=== PATIENT | male | born 1955 ===

== ENCOUNTER 2017-11-09 05:17 | Inpatient (IN) | payer OTHER ==
[~2017-11-09] VITALS: Ht 165.1 cm; Wt 80.7 kg
[2017-11-09] VITALS (13 sets, daily range): BP systolic 125–177; BP diastolic 65–86
[2017-11-09] MEDS ORDERED: AMLODIPINE BESY10 MG ORAL (06:23)
[2017-11-09] MEDS ORDERED: Thrombin 5000 units TOPIC ONE (06:24)
[2017-11-09] MEDS ORDERED: Surgicel 4in x 8in TOPIC ONE (06:24)
[2017-11-09] MEDS ORDERED: Bacitracin 50000 Units Vial ONE (06:25)
[2017-11-09] MEDS ORDERED: Bupivacaine 0.5% Inj 30 ml vial INJ ONE (06:25)
[2017-11-09] MEDS ORDERED: Vancomycin 1gm inj IVPB ONE (06:25)
[2017-11-09] MEDS ORDERED: LR 1000ml 1,000 ML IVLG SCH (06:29)
--- NOTE | 2017-11-09 06:29 | Anethesia Preoperative Eval ---
Anesthesia Pre-op PMH/ROS General Date of Evaluation: Nov 09, 2017 Time of Evaluation: 07:06 Anesthesiologist: Lynda ASA Score: ASA 3 Mallampati Score Class I : Soft palate, uvula, fauces, pillars visible Class II: Soft palate, uvula, fauces visible Class III: Soft palate, base of uvula visible Class IV: Only hard plate visible Mallampati Classification: Class II Surgeon: Mckenna Diagnosis: Neck Pain Surgical Procedure: ACDF C5-6, C6-7, ADR C4-5 Anesthesia History: none Family History: no anesthesia problems Allergies: Coded Allergies: No Known Allergies (Unverified , 11/08/17) Medications: see eMAR Past Medical History Cardiovascular: Reports: HTN Other: obesity - BMI 31 Anesthesia Pre-op Phys. Exam Physician Exam Last Vital Signs Date Time Temp Pulse Resp B/P (MAP) Pulse Ox O2 Delivery O2 Flow Rate FiO2 11/09/17 06:23 97.9 69 20 177/80 99 Room Air Constitutional: NAD Neurologic: CN 2-12 intact Cardiovascular: RRR Respiratory: CTA Gastrointestinal: S/NT/ND Airway Exam Mallampati Score: Class II MO: limited ROM: limited Teeth: intact Anesthesia Pre-op A/P Risk Assessment & Plan Assessment: ASA 3 Plan: GA, BIS, GlideScope Status Change Before Surgery: No Pre-Antibiotics Dru Grams Ancef IV Given Within 1 Hr of Incision: Yes Time Given: 07:31 Bebo Howell MD Nov 09, 2017 06:29
[2017-11-09] MEDS ORDERED: Ketorolac 30mg Inj IV PRN (06:30)
[2017-11-09] MEDS ORDERED: fentaNYL 100 mcg/2 mL IV PRN (06:30)
[2017-11-09] MEDS ORDERED: Norco 7.5mg/325mg tab ORAL PRN ×3 (06:30→07:30)
[2017-11-09] MEDS ORDERED: DiphenhydrAMINE 50mg/ml Inj IVP PRN (06:30)
[2017-11-09] MEDS ORDERED: Ketorolac 60mg Inj IV PRN (06:30)
[2017-11-09] MEDS ORDERED: LORazepam Inj 2mg/ml 1ml IV PRN (06:30)
[2017-11-09] MEDS ORDERED: Norco 5mg/325mg tab ORAL PRN ×2 (06:30→07:30)
[2017-11-09] MEDS ORDERED: Hydromorphone 0.5mg/0.5ml inj IVP PRN (06:30)
[2017-11-09] MEDS ORDERED: Acetaminophen (Non formulary) 100 ML IV ONE (06:30)
[2017-11-09] MEDS ORDERED: Midazolam 2mg/2ml Inj IVP PRN (06:30)
[2017-11-09] MEDS ORDERED: oxyCODONE HCL/Acetaminophen 5/325mg ORAL PRN (06:30)
[2017-11-09] MEDS ORDERED: Metoclopramide 10mg/2ml Inj IVP PRN ×2 (06:30→07:30)
[2017-11-09] MEDS ORDERED: Atropine Inj 1mg/10ml Syr IV PRN (06:30)
[2017-11-09] MEDS ORDERED: Lidocaine 1% MPF 10mg/ml 5ml ONE (07:00)
[2017-11-09] MEDS ORDERED: Glycopyrrolate 0.2mg/ml 1ml Vial ONE (07:00)
[2017-11-09] MEDS ORDERED: Lidocaine 1% Plain 30 ml INJ ONE (07:00)
[2017-11-09] MEDS ORDERED: Zemuron 50mg/5ml Inj IV ONE (07:00)
[2017-11-09] MEDS ORDERED: ceFAZolin sod 2 GM in D5W 110 ML IVPB ONE (07:00)
[2017-11-09] MEDS ORDERED: Propofol 1,000mg/ 100ml btl IV ONE (07:00)
[2017-11-09] MEDS ORDERED: Sterile Water Irrig 1000ml IRRIG ONE (07:00)
[2017-11-09] MEDS ORDERED: NS Irrig 1000ml ONE (07:00)
[2017-11-09] MEDS ORDERED: Neostigmine 1mg/ml 10ml Inj ONE (07:00)
[2017-11-09] MEDS ORDERED: fentaNYL 100 mcg/2 mL IV ONE (07:00)
--- NOTE | 2017-11-09 07:21 | Pre-Procedure Note/Attestation ---
Pre-Procedure Note/Attestation Complete Prior to Procedure Planned Procedure: not applicable Procedure Narrative: C56 Anterior cervical discectomy and fusion , C45 and C67 Anterior cervical discectomy and fusion vs artificial disc replacement Indications for Procedure Pre-Operative Diagnosis: Herniation C45,56,67 Attestation I attest that I discussed the nature of the procedure; its benefits; risks and complications; and alternatives (and the risks and benefits of such alternatives ), prior to the procedure, with the patient (or the patient's legal retention representative). I attest that, if there was a reasonable possibility of needing a blood transfusion, the patient (or the patient's legal retention representative) was given the [place] [employer] standardized written summary, pursuant to the Deepak Whetstone Blood Safety Act ([place] Health and Safety Code # 1645, as amended). I attest that I re-evaluated the patient just prior to the surgery and that there has been no change in the patient's H&P, except as documented below: CARLOTTA CAN Nov 09, 2017 07:20
--- NOTE | 2017-11-09 07:23 | Brief Operative Note ---
Immediate Post Operative Note Operative Note Chief Complaint: neck pain and radiculopathy Pre-op Diagnosis: Herniation C45,56,67 Procedure: C56 Anterior cervical discectomy and fusion , C67 Anterior cervical discectomy and fusion and C45 artificial disc replacement Post-op Diagnosis: same as pre-op Findings: consistent w/pre-op dx studies Surgeon: Mckenna Line Builder: Mehdi Anesthesia: general Specimen: none Complications: none Condition: stable Estimated Blood Loss: minimal Implant(s) used?: Yes - prodisc c sz 5, nuvasive peek interlock sz 6x2 , screws 13x6 CARLOTTA CAN Nov 09, 2017 07:23
[2017-11-09] MEDS ORDERED: Naloxone 0.4mg/ml Inj IVP PRN (07:30)
[2017-11-09] MEDS ORDERED: Milk of Magnesia 30ml Ud ORAL PRN (07:30)
[2017-11-09] MEDS ORDERED: HYDROmorphone 1mg/ml Carpuject SUBQ PRN (07:30)
[2017-11-09] MEDS ORDERED: HYDROmorphone 1mg/ml Carpuject IVP PRN (07:30)
[2017-11-09] MEDS ORDERED: Chloraseptic Spray 20mL Bottle ORAL PRN (07:30)
--- NOTE | 2017-11-09 08:18 | Immediate Post-Op Evaluation ---
Immediate Post-Op Evalulation Immediate Post-Op Evalulation Procedure: ACDF C5-6, C6-7, ADR C4-5 Date of Evaluation: Nov 09, 2017 Time of Evaluation: 10:15 IV Fluids: 1500 LR Blood Products: 0 Estimated Blood Loss: 25 Urinary Output: 700 LR Blood Pressure Systolic: 125 Blood Pressure Diastolic: 65 Pulse Rate: 60 Respiratory Rate: 16 O2 Sat by Pulse Oximetry: 100 Temperature (Fahrenheit): 97.1 Pain Score (1-10): 3 Nausea: No Vomiting: No Complications 0 Patient Status: awake, reacts, patent, extubated, none Hydration Status: adequate Dru Grams Ancef IV Given Within 1 Hr of Incision: Yes Time Given: 07:31 Bebo Howell MD Nov 09, 2017 08:18
[2017-11-09] MEDS: NS w/KCl 20mEq 1,000 ML IV SCH ×2 (11:34→20:47)
[2017-11-09] MEDS: Dexamethasone 4mg/ml vial IVP SCH ×2 (14:24→20:46)
--- NOTE | 2017-11-09 15:19 | Consultation ---
History of Present Illness General Date patient seen: Nov 09, 2017 Time patient seen: 18:00 Chief Complaint: neck pain and radiculopathy Referring physician: Dr. Andres Reason for Consultation: med mgmt Present Illness HPI 62y/o male with pmh of HTN and cervical disc herniation with radiculopathy who presents s/p C56 Anterior cervical discectomy and fusion , C67 Anterior cervical discectomy and fusion and C45 artificial disc replacement on 11/09/17. No periop or postop complications. Pain appears well controlled. Denies f/c, n/v , d/c, chest pain, SOB. Allergies: Coded Allergies: No Known Allergies (Unverified , 11/08/17) Medication History Scheduled Amlodipine Besylate* (Amlodipine Besylate*), 10 MG ORAL DAILY, (Reported) Hydrocodone Bit/Acetaminophen 10-325* (Hydrocodon-Acetaminophn 10-325*), 1 TAB ORAL Q8H, (Reported) Patient History History Provided By: Patient, Family Member, Medical Record Healthcare decision maker [facility] Resuscitation status Full Code Advanced Directive on File Past Medical/Surgical History Past Medical/Surgical History: (1) HTN (hypertension) (2) HNP (herniated nucleus pulposus), cervical Family History Family History: (1) No significant family history Social History Social History: (1) No significant social history Review of Systems ROS Narrative CONSTITUTIONAL: No weight loss, fever, chills, weakness or fatigue. HEENT: Eyes: No visual loss, blurred vision, double vision or yellow sclerae. Ears, Nose, Throat: No hearing loss, sneezing, congestion, runny nose or sore throat. SKIN: No rash or itching. CARDIOVASCULAR: No chest pain, chest pressure or chest discomfort. No palpitations or edema. RESPIRATORY: No shortness of breath, cough or sputum. GASTROINTESTINAL: No anorexia, nausea, vomiting or diarrhea. No abdominal pain or blood. NEUROLOGICAL: No headache, dizziness, syncope, paralysis, ataxia, numbness or tingling in the extremities. No change in bowel or bladder control. MUSCULOSKELETAL: No muscle, back pain, joint pain or stiffness. HEMATOLOGIC: No anemia, bleeding or bruising. LYMPHATICS: No enlarged nodes. No history of splenectomy. PSYCHIATRIC: No history of depression or anxiety. ENDOCRINOLOGIC: No reports of sweating, cold or heat intolerance. No polyuria or polydipsia. ALLERGIES: No history of asthma, hives, eczema or rhinitis. Physical Exam Physical Exam Narrative General: alert, cooperative, no distress, appears stated age Head: normocephalic, without obvious abnormality, atraumatic Eyes: conjunctivae/corneas clear. PERRL, EOM's intact Throat: lips, mucosa, and tongue normal. MMM Neck: supple, symmetrical, trachea midline, and no JVD Lungs: clear to auscultation bilaterally Heart: regular rate and rhythm, S1, S2 normal, no murmur, click, rub or gallop Abdomen: soft, non-tender, non-distended, bowel sounds normal; no masses or organomegaly Extremities: extremities normal, atraumatic, no cyanosis or edema Pulses: 2+ and symmetric Skin: skin color, texture, turgor normal; dressing c/d/i Neurologic: grossly normal, no focal deficits Last 24 Hour Vital Signs Date Time Temp Pulse Resp B/P (MAP) Pulse Ox O2 Delivery O2 Flow Rate FiO2 11/09/17 14:34 97.3 11/09/17 12:00 97.3 73 19 133/67 96 Room Air 11/09/17 11:30 97.4 71 19 140/73 95 Room Air 11/09/17 11:10 97.4 11/09/17 10:59 97.4 67 14 146/72 100 Nasal Cannula 3.0 11/09/17 10:50 66 13 138/72 100 Nasal Cannula 3.0 11/09/17 10:40 66 14 143/72 98 Nasal Cannula 3.0 11/09/17 10:30 65 14 152/76 100 Nasal Cannula 3.0 11/09/17 10:19 63 15 146/76 100 Simple Mask 6.0 11/09/17 10:15 62 13 150/78 100 Simple Mask 6.0 11/09/17 10:10 63 14 147/73 100 Simple Mask 6.0 11/09/17 10:04 97.1 59 12 125/65 100 Simple Mask 6.0 11/09/17 10:04 60 16 100 11/09/17 06:23 97.9 69 20 177/80 99 Room Air Intake and Output 11/09/17 11/10/17 19:00 07:00 Intake Total 2050 ml Output Total 1825 ml Balance 225 ml Intake IV Total 2050 ml Output Urine Total 1800 ml Estimated Blood Loss 25 ml Height (Feet): 5 Height (Inches): 5.00 Weight (Pounds): 178 Medications Current Medications Medications (Trade) Dose Ordered Sig/Joel Route PRN Reason Start Time Stop Time Status Last Admin Dose Admin Acetaminophen (Tylenol) 650 mg Q4H PRN ORAL headache or temp>101 11/09/17 07:30 12/09/17 07:29 Acetaminophen/ Hydrocodone Bitart ([place] 5/325) 1 tab Q3H PRN ORAL pain score 1-3 11/09/17 07:30 11/16/17 07:29 Acetaminophen/ Hydrocodone Bitart ([place] 7.5/325) 1 ea Q3H PRN ORAL pain score 4-6 11/09/17 07:30 11/16/17 07:29 Acetaminophen/ Hydrocodone Bitart ([place] 7.5/325) 2 ea Q3H PRN ORAL pain scale 7-10 11/09/17 07:30 11/16/17 07:29 Carisoprodol (Soma) 350 mg TIDPRN PRN ORAL SPASM 11/09/17 07:30 12/09/17 07:29 Cefazolin Sodium 1 gm/Dextrose 55 ml @ 110 mls/hr Q8H IV 11/09/17 15:30 11/10/17 07:59 Cetylpyridinium Chloride (Cepacol) 1 lozenge Q2H PRN CARLINE To Patient Comfort 11/09/17 11:30 12/09/17 07:29 Dexamethasone Sodium Phosphate (Decadron 4mg/ml vial) 4 mg Q6H IVP 11/09/17 14:30 11/10/17 08:31 11/09/17 14:24 Docusate Sodium (Colace) 100 mg TWICE A DAY ORAL 11/09/17 18:00 12/09/17 17:59 Hydromorphone HCl (Dilaudid) 1 mg Q2H PRN IVP Breakthrough Pain 11/09/17 07:30 11/16/17 07:29 Hydromorphone HCl (Dilaudid) 1 mg Q4H PRN SUBQ Mild Pain (Pain Scale 1-3) 11/09/17 07:30 11/16/17 07:29 Hydromorphone HCl (Dilaudid) 2 mg Q3H PRN SUBQ Severe Pain (Pain Scale 7-10) 11/09/17 07:30 11/16/17 07:29 11/09/17 14:02 Hydromorphone HCl (Dilaudid) 2 mg Q4H PRN SUBQ Moderate Pain (Pain Scale 4-6) 11/09/17 07:30 11/16/17 07:29 Magnesium Hydroxide (Mom) 30 ml QIDPRN PRN ORAL Constipation 11/09/17 07:30 12/09/17 07:29 Metoclopramide HCl (Reglan) 10 mg Q6H PRN IVP Nausea & Vomiting 11/09/17 07:30 12/09/17 07:29 Naloxone HCl (Narcan) 0.1 mg PRN PRN IVP RR<12/min, pt unarousable 11/09/17 07:30 12/09/17 07:29 Phenol/Menthol (Chloraseptic) 1 spray Q3H PRN ORAL To Patient Comfort 11/09/17 07:30 12/09/17 07:29 Prochlorperazine (Compazine) 10 mg Q6H PRN IVP Nausea & Vomiting 11/09/17 07:30 12/09/17 07:29 Sodium Chloride 1,000 ml @ 100 mls/hr Q10H IV 11/09/17 12:00 12/09/17 11:59 11/09/17 11:34 Temazepam (Restoril) 15 mg HSPRN PRN ORAL Insomnia 11/09/17 07:30 11/16/17 07:29 Assessment/Plan Problem List: (1) HNP (herniated nucleus pulposus), cervical ICD Codes: M50.20 - Other cervical disc displacement, unspecified cervical region SNOMED: 56646388 (2) HTN (hypertension) ICD Codes: I10 - Essential (primary) hypertension SNOMED: 33255188 Status: stable Assessment/Plan s/p C56 Anterior cervical discectomy and fusion , C67 Anterior cervical discectomy and fusion and C45 artificial disc replacement on 11/09/17 Post operative recommendations include: - encourage mobilization/ambulation - encourage incentive spirometry to optimize pulmonary hygiene - DVT/GI prophylaxis as appropriate - D/c naty in AM - pain control, supportive care, bowel regimen - PT/OT - cont home norvasc FULL CODE D/w pt, family, RN, SW/CM, surgery regarding mgmt and dispo Don Hylton M.D. Nov 09, 2017 15:19
[2017-11-09] MEDS: ceFAZolin sod 1 GM in D5W 55 ML IV SCH ×2 (15:53→23:57)
[2017-11-09] MEDS: Docusate 100mg cap ORAL SCH (17:19)
[2017-11-09] MEDS ORDERED: Tubing IV Secondary IV ONE (18:58)
[2017-11-10] VITALS: BP 129/70
[2017-11-10] MEDS: Dexamethasone 4mg/ml vial IVP SCH ×2 (03:03→08:20)
[2017-11-10 04:00] VITALS: BP 146/71
[2017-11-10] MEDS: ceFAZolin sod 1 GM in D5W 55 ML IV SCH (06:46)
[2017-11-10] MEDS: NS w/KCl 20mEq 1,000 ML IV SCH (06:47)
[2017-11-10 08:00] VITALS: BP 149/79
[2017-11-10] MEDS: Docusate 100mg cap ORAL SCH ×2 (08:20→17:49)
--- NOTE | 2017-11-10 09:15 | 48 Hour Post Anesthesia Eval ---
Post Anesthesia Evaluation Procedure: ACDF C5-6, C6-7, ADR C4-5 Date of Evaluation: Nov 10, 2017 Airway: patent Nausea: No Vomiting: No Pain Intensity: 2 Hydration Status: adequate Cardiopulmonary Status: at baseline Mental Status/LOC: patient returned to baseline Post-Anesthesia Complications: 0 Follow-up care needed: N/A - further care as per primary team LUIS ANGEL MOON M.D. Nov 10, 2017 09:15
[2017-11-10] MEDS ORDERED: Tamsulosin 0.4mg cap ORAL SCH (10:00)
[2017-11-10 11:55] VITALS: BP 145/71
[2017-11-10 16:51] VITALS: BP 132/68
--- NOTE | 2017-11-10 18:00 | Operative Note - Dictated ---
DATE OF OPERATION: 11/09/2017 SURGEON: Oneil Andres MD, orthopedic spine surgeon. PERFORMANCE CONSULTANT: JESSICA Snell PREOPERATIVE DIAGNOSES: 1. Intractable neck pain. 2. Radiculopathy. 3. Herniation, C4-C5 and C5-C6. 4. Neural foraminal stenosis, C4-C5 and C5-C6, C67 POSTOPERATIVE DIAGNOSES: 1. Intractable neck pain. 2. Radiculopathy. 3. Herniation, C4-C5 and C5-C6. 4. Neural foraminal stenosis, C4-C5 and C5-C6, C67 PROCEDURE PERFORMED: 1. Anterior cervical discectomy and artificial disc replacement of C4-C5 using a Synthes ProDisc cervical size 5 height 2. Anterior cervical discectomy and fusion of C5-C6 and C67 using NuVasive Interlock Cage, size 6 mm with 1 mL Osteocel bone and three screws of 13 mm length. 3. Use of intraoperative microscope. 4. Motor evoked potential monitoring. 5. Somatosensory evoked potential monitoring. 6. Supervision and interpretation of fluoroscopy. COMPLICATIONS: None. ANESTHESIA: General. ESTIMATED BLOOD LOSS: Less than 100 mL. INDICATIONS FOR SURGERY: This patient is a 62-year-old male who has a history of diagnoses as listed above. As of result of this, the patient sustained intractable neck pain; radiculopathy; herniation, C4-C5 and C5-C6; and neural foraminal stenosis, C4-C5 and C5-C6, c67. We tried a course of conservative management but despite this course there was still a significant component of persistent, recalcitrant neck pain and arm pain. The MRI demonstrated significant neural foraminal compromise secondary to disc herniations at C4-C5 and C5-C6, C67. We had a long discussion with Erasmo regarding the risks and benefits of surgery. Our discussion included but was not limited to nonoperative management, chiropractic management, another epidural steroid injection as well definitive management in the form of surgery. We recommended an anterior cervical discectomy and artificial disc replacement of C4-C5 and anterior cervical discectomy and fusion of C5-C6 and C67. We reviewed the risks and benefits of surgery with the patient. Our discussion included a comprehensive review of the clinical issues and the nature of the clinical decision. We reviewed the alternatives, including doing nothing. The patient elected to proceed accordingly with anterior cervical discectomy and artificial disc replacement of C4-C5 5 and anterior cervical discectomy and fusion of C5-C6and C67. We had a long discussion regarding the risks, alternatives and benefits of surgery. Our description of the risks included a discussion in person as well as a signed consent which detailed all pertinent risks from the procedure itself. Briefly, our discussion included but was not limited to infection, bleeding, pseudarthrosis, spinal cord injury, neurovascular injury, dural tear, CSF leak, neuropathy, paralysis, permanent weakness/drop foot/drop arm, paresthesias, blindness, palsy and weakness. The patient understood there may be a need for a revision surgery or additional procedures. Approach-related complications including dysphonia, dysphagia, blindness, permanent vocal cord and neural injury, hematoma, swallowing and breathing difficulty. Medical complications were reviewed including liver, kidney, shock, cardiopulmonary failure, anesthesia complications including , swelling, damage to the musculature, larynx/voice injury or loss, esophagus/throat, trachea, blood vessels and muscles/muscular sprain and lungs/pneumothorax during this surgical procedure; injury to deeper structures may be temporary or permanent. After this review of risks, the patient understood these and elected to proceed. A written and verbal consent was given. We discussed the pros and cons of all the alternatives. We discussed the uncertainties associated with the decision. Afterwards I assessed the patient's understanding and explored their preferences. All questions were answered and no guarantees were given. Medical clearance was obtained prior to surgery. INTRAOPERATIVE FINDINGS: A broad based disc herniation which was found posterior to a tear/rent in the posterior longitudinal ligament at C4-C5 and C5-C6 causing a considerable amount of neural foraminal stenosis with significant encroachment on the neural foramina and spinal cord. Significant pressure at C67 due to a discrete tear of the annulus fibrosus causing the herniation to protrude onto the neural elements DESCRIPTION OF PROCEDURE: Under the benefit of general endotracheal anesthesia and with the assistance of the entire operative team, the patient was moved from the rmoorhead onto the operative table in the supine position. The head was secured and carefully positioned appropriately. Bilateral arms were secured with GelPads and foam and all bony prominences were padded. For the bilateral lower extremities SCD and MICHELLE hose were placed for DVT prophylaxis. A surgical timeout was called which corroborated our planned procedure of anterior cervical discectomy and artificial disc replacement of C4-C5 and anterior cervical discectomy and fusion of C5-C6 and C67. Preoperative antibiotics were administered within 30 minutes of the incision for antibiotic prophylaxis. Using lateral fluoroscopic radiography, the operative levels were delineated. Next the wound was prepped and draped with Chlorhexidine and sterile drapes. An incision was based on lateral fluoroscopy and we centered our incision at the C4-C5 and C5-C6 interspace and next using a standard Rosado-Gregory anterior based approach the incision was taken down through the skin and subcutaneous tissues until the vertebral bodies and their corresponding disc spaces were visualized. A needle was placed into the interspace to confirm placement of the operative interspace and we performed the remainder of procedure under microscopic visualization. Next, using a bipolar and Bovie cautery to ensure meticulous hemostasis, the longus colli was mobilized bilaterally and retractors were placed deep to the longus colli bilaterally to address retraction. Next we turned our attention to the radical anterior discectomy. This was initially performed at C4-C5. First by using a 15 blade scalpel followed by narrow pituitaries and a Microsect 5-B curette was used to denude the endplate of all cartilaginous tissue. Next using a Soflow AM8 drillbit the vertebral endplates were denuded in a [id number] and layer by layer fashion, and ultimately the posterior uncinate joints bilaterally and posterior osteophytic lips and margins causing central and lateral impingement were carefully denuded until visualization of the posterior longitudinal ligament was possible. An endplate preparation was performed in the exact same fashion using an intervertebral vacuum drier operator, sequential distraction was obtained throughout the disc space. We saw a tear/rent in the PLL and this was carefully mobilized and dissected using a Microsect 1-B curet until we visualized a broad-based disc herniation with compression of the spinal cord as well as neural foramina, which was right more than left sided. This neural foraminal compression was carefully resected using a Kerrison-1 and Kerrison-2 rongeurs until complete decompression of the spinal cord was visualized and complete decompression of the neural foramina and nerve root therein as well as the axilla and lateral margin of the nerve root was visualized and subsequently completely decompressed. We next turned our attention towards trialing our implant within the disc space. We initially tried size 5 and the ProDisc Cervical spacer fit well in regards to depth and width. This implant was opened and prepared. Next under direct visualization I confirmed excellent fit in respect to the anterior and posterior vertebral bodies, the uncinate joints and in regards to toggle. Once satisfied with this placement on serial AP and lateral fluoroscopy I turned my attention towards cutting our yan. These were cut in the bones using a reciprocating drill and afterwards all free fragments of bone were irrigated. Next FloSeal was placed into the interspace and the implant was inserted using fluoroscopic guidance. Next the Synthes ProDisc C size 5 ADR was then carefully advanced and secured into the intervertebral space under direct visualization and with supervision of AP and lateral fluoroscopic views. Next we turned our attention to the radical anterior discectomy at the C5-C6 level first by using a 15 blade scalpel followed by narrow pituitaries, and a micro-sect 5-B curette was used to denude the endplate of all cartilaginous tissue. Next using a Soflow AM8 drillbit the vertebral end-plates were denuded in a [id number] and layer by layer fashion, and ultimately the posterior uncinate joints bilaterally and posterior osteophytic lips and margins causing central and lateral impingement were carefully denuded until visualization of the posterior longitudinal ligament was possible. An endplate preparation was performed in the exact same fashion using an intervertebral vacuum drier operator, sequential distraction was obtained throughout the disc space. We saw a tear/rent in the PLL and this was carefully mobilized and dissected using a micro-set 1-B curet until we visualized a broad-based disc herniation with compression of the spinal cord as well neural foramina, which was right more than left sided. This neural foraminal compression was carefully resected using a Kerrison-1 and Kerrison-2 rongeurs until complete decompression of the spinal cord was visualized and complete decompression of the neural foramina and nerve root therein as well as the axilla and lateral margin of the nerve root was visualized and subsequently completely decompressed. We next turned our attention towards trialing our implant within the disc space. We initially tried size 5 and afterwards size 6 trial from the [employer] system at each level, which appeared to be appropriate under AP and lateral fluoroscopy as well as in terms of its height, depth, width and lack of toggle. The PEEK polyetheretherketone interbody cages were then both packed with allograft bone from Osteocel and local autograft bone matrix. Next these were then carefully advanced and secured into their intervertebral spaces under direct visualization and with supervision of AP and lateral fluoroscopic views We next turned our attention towards plating. Plating was performed with the NuVasive interlock-C plating system. A total of three screws, size 13 mm in length were inserted and confirmed under AP and lateral fluoroscopy and confirmed to be in excellent position. Next we turned our attention to the radical anterior discectomy at the CC67 level first by using a 15 blade scalpel followed by narrow pituitaries, and a micro-sect 5-B curette was used to denude the endplate of all cartilaginous tissue. Next using a [employer] AM8 drillbit the vertebral end-plates were denuded in a [id number] and layer by layer fashion, and ultimately the posterior uncinate joints bilaterally and posterior osteophytic lips and margins causing central and lateral impingement were carefully denuded until visualization of the posterior longitudinal ligament was possible. An endplate preparation was performed in the exact same fashion using an intervertebral vacuum drier operator, sequential distraction was obtained throughout the disc space. We saw a tear/rent in the PLL and this was carefully mobilized and dissected using a micro-set 1-B curet until we visualized a broad-based disc herniation with compression of the spinal cord as well neural foramina, which was right more than left sided. This neural foraminal compression was carefully resected using a Kerrison-1 and Kerrison-2 rongeurs until complete decompression of the spinal cord was visualized and complete decompression of the neural foramina and nerve root therein as well as the axilla and lateral margin of the nerve root was visualized and subsequently completely decompressed. We next turned our attention towards trialing our implant within the disc space. We initially tried size 5 and afterwards size 6 trial from the NuVasive system at each level, which appeared to be appropriate under AP and lateral fluoroscopy as well as in terms of its height, depth, width and lack of toggle. The PEEK polyetheretherketone interbody cages were then both packed with allograft bone from Osteocel and local autograft bone matrix. Next these were then carefully advanced and secured into their intervertebral spaces under direct visualization and with supervision of AP and lateral fluoroscopic views We next turned our attention towards plating. Plating was performed with the NuVasive interlock-C plating system. A total of three screws, size 13 mm in length were inserted and confirmed under AP and lateral fluoroscopy and confirmed to be in excellent position. After a finger sweep we confirmed removal of all sponges. The retractor was removed and we next turned our attention to meticulous hemostasis with FloSeal and bipolar cautery. After the sponge and needle count was again found to be correct with our second count, we next turned our attention to closure. The wound was again copiously irrigated with antibiotic impregnated saline. Closure consisted of 4-0 clear nylon for the platysma, and 6-0 clear nylon for the superficial skin. Final skin closure and dressings consisted of Dermabond. Prior to final closure, a final radiograph was obtained which demonstrated the hardware is intact with excellent position throughout. The patient tolerated the procedure well. The patient was carefully extubated after the conclusion of surgery. We discussed the findings of the surgery with the family upon completion of the case. At this point the patient was transferred to the spine floor for further observation. Oneil Andres M.D. DR: GAGE JOB#: [id number] CC: OSIRIS
[2017-11-10] MEDS ORDERED: HYDROCODON-ACE1 EA13 ORAL (18:02)
[2017-11-10] MEDS ORDERED: Tubing Blood Filter IV ONE (18:11)
[2017-11-10] MEDS ORDERED: NS 500ML ONE (18:11)
--- NOTE | 2017-11-11 06:54 | Discharge Summary ---
Discharge Summary Hospital Course Date of Admission Nov 09, 2017 at 05:43 Date of Discharge Nov 10, 2017 at 19:03 Admitting Diagnosis intractable neck pain and radiculopathy Reason for Hospitalization: surgery HPI 62y/o male with pmh of HTN and cervical disc herniation with radiculopathy who presents s/p C56 Anterior cervical discectomy and fusion, C67 Anterior cervical discectomy and fusion and C45 artificial disc replacement on 11/09/17. Consultations Spine surgery Procedures C56 Anterior cervical discectomy and fusion, C67 Anterior cervical discectomy and fusion and C45 artificial disc replacement on 11/09/17 Hospital Course Pt tolerated surgery well. He was seen by PT/OT who cleared him for d/c home. He had postop urinary retention requiring alfonso but alfonso removed the next day and pt able to void on own. Discharge Medications Continued Medications: Amlodipine Besylate* (Amlodipine Besylate*) 10 Mg Tablet 10 MG ORAL DAILY, TAB Hydrocodone Bit/Acetaminophen 10-325* (Hydrocodon-Acetaminophn 10-325*) 1 Each Tablet 1 TAB ORAL Q8H, #90 TAB 0 Refills Discharge Condition Upon Discharge: stable Discharge Disposition Patient was discharged to Home (01) Discharge Diagnoses: (1) Postoperative urinary retention (2) HNP (herniated nucleus pulposus), cervical (3) HTN (hypertension) Don Hylton M.D. Nov 11, 2017 06:54
--- NOTE | 2017-12-03 16:06 | Diagnostic Imaging Report ---
Indication: Pain, intraoperative images Technique: Intraoperative images Comparison: none Findings: Surgical tool projects at the anterior aspect of the C5-6 disc. Subsequent images document placement of a disc prosthesis at C4-5, anterior fusion at C5-6 and C6-7. Impression: Intraoperative imaging, as described
== END 2017-11-10 19:03 | disposition home or self-care (01) | DRG 473 ==
LOC: UNDOADMIN 05:17 → SDSOVERFLO 05:17 → 3E 11:16
PROC: 0RG20A0 Fusion of 2 or more Cervical Vertebral Joints with Interbody Fusion Device, Anterior Approach, Anterior Column, Open Approach (ICD-10-PCS; principal; 2017-11-09 07:00)
PROC: 4A11X4G Monitoring of Peripheral Nervous Electrical Activity, Intraoperative, External Approach (ICD-10-PCS; principal; 2017-11-09 07:00)
PROC: 0RB30ZZ Excision of Cervical Vertebral Disc, Open Approach (ICD-10-PCS; principal; 2017-11-09 07:00)
DX: M50.121 Cervical disc disorder at C4-C5 level with radiculopathy (principal); I10 Essential (primary) hypertension; M48.02 Spinal stenosis, cervical region; E66.9 Obesity, unspecified; Z68.31 Body mass index [BMI] 31.0-31.9, adult
CPT/HCPCS: 36415; 72040; 76001; 86850; 86900; 86901; 87081; 94003; 94150; J2710